=== PATIENT | male | born 1965 | race Caucasian/White ===

== ENCOUNTER 2025-05-23 08:12 | Emergency (ER) | payer BC, MEDICAID, SELFPAY ==
[2025-05-23 08:24] VITALS: BP 169/124; PULSE 115; RESP 18; TEMP 36.8; O2SAT 98; BMI 28.5
--- NOTE | 2025-05-23 08:33 | ED_ITS ---
HPI - Abdominal Pain 2 General: Chief Complaint: Back Pain/Injury Stated Complaint: lt abd pain Time Seen by Provider: 05/23/25 08:30 Source: patient Mode of arrival: ambulatory Limitations: no limitations History of Present Illness: 59-year-old male states he has had left flank pain over the last few days. States pains been sharp in nature and gradually worsening states has had a history of kidney stones and this feels similar he rates his pain an 8 out of 10 currently denies any vomiting denies any dysuria. Associated Symptoms: Denies chills, diarrhea, dysuria, fever(s), nausea and vomiting Related Data Previous Rx's ?Medication ?Instructions ?Recorded hydrocodone 5 mg-acetaminophen 325 1 tab PO Q6H PRN pa in #14 tabs 05/23/25 mg tablet tamsulosin 0.4 mg capsule (Flomax) 0.4 mg PO DAILY #10 caps 05/23/25 Allergies Allergy/AdvReac Type Severity Reaction Status Date / Time No Known Allergies Allergy Verified 05/23/25 08:26 Review of Systems 2 Const: Denies: fever(s), chills, body aches or change in appetite ENMT: Denies: throat pain or dental pain Card: Denies: chest pain Resp: Denies: dyspnea GI: Denies: abdominal pain, nausea, vomiting or diarrhea : Reports: flank pain; Denies: dysuria Musc: Denies: neck pain or back pain Skin/Breast: Denies: rash Neuro: Denies: headache(s) Physical Exam 2 Const: COMMON NORMALS: no acute distress, patient oriented x3 and healthy appearing HENMT: COMMON NORMALS: normocephalic and atraumatic HEAD & SCALP: n ormocephalic and atraumatic Eye: COMMON NORMALS: conjunctivae normal CONJUNCTIVA: Yes conjunctivae normal Neck/C-Spine: COMMON NORMALS: full ROM and supple Chest: COMMONS NORMALS: normal inspection of the chest Resp: COMMON NORMALS: normal respiratory effort, No retractions, No use of accessory muscles and clear to auscultation bilaterally AUSCULTATION: clear to auscultation bilaterally Cardio: COMMON NORMALS: regular rate, regular rhythm and No murmurs present (Cardio) RATE: regular rate RHYTHM: regular rhythm GI: COMMON NORMALS: Normal to inspection, nondistended, normoactive bowel sounds present, Soft to palpation, non-tender and no masses PALPATION: Yes Soft to palpation Extremity: COMMON NORMALS: normal to inspection and full ROM Neuro: COMMON NORMALS: patient oriented x3, moves all extremities and no focal motor deficits Psych: COMMON NORMALS: mental status grossly normal, Normal thought process present and cooperative THOUGHT PROCESS: Normal thought process present Skin: COMMON NORMALS: no rashes or lesions noted and no wounds GENERAL SKIN EXAM: no rashes or lesions noted Course 2 Vital Signs: Vital signs: Vital Signs Temperature 98.2 F 05/23/25 08:24 Pulse Rate 109 H 05/23/25 09:16 Respiratory Rate 18 05/23/25 08:24 Blood Pressure 147/103 05/23/25 09:16 Pulse Oximetry 98 05/23/25 09:16 Oxygen Delivery Me thod Room Air 05/23/25 09:16 MDM - Abdominal Pain Medical Decision Making Patient presents here with some flank pain CT does show an enlarged prostate blood work urine here is normal he has been able to urinate he does have a UTI feels improved here form needs to follow-up with urology along with his PCP for further workup of his prostate return if worsening he understands agrees to plan Medical Records I reviewed the patient's medical records. Lab Data I reviewed the patient's lab results. 05/23/25 08:40 05/23/25 08:40 Labs/Radiology: Radiology Impressions Abdomen/Pelvis CT 05/23/25 08:46 IMPRESSION: 1. No obstructing renal or ureteral calculi. No hydronephrosis in either kidney. 2. Markedly enlarged prostate with evidence of bladder outlet obstruction. Recommend correlation PSA. Prostate measures 3.9 x 4.8 cm AP by transverse 3. Small esophageal hiatal hernia. 4. Severe chronic central canal stenosis L2-3. Laboratory Results WBC 7.55 10^3/uL (3.29-11.43) 05/23/25 08:40 RBC 5.04 10^6/uL (3.85-5.65) 05/23/25 08:40 Hgb 16.00 g/dL (11.27-16.99) 05/23/25 08:40 Hct 47.9 % (37-53) 05/23/25 08:40 MCV 95.0 fl (82-101) 05/23/25 08:40 MCH 31.7 pg (27-33) 05/23/25 08:40 MCHC 33.4 g/dL (30-55) 05/23/25 08:40 RDW 13.3 % (12.1-15.1) 05/23/25 08:40 Plt Count 247 10^3/cmm (157-399) 05/23/25 08:40 MPV 9.9 fL (7.4-10.4) 05/23/25 08:40 Neut % (Auto) 61.0 % 05/23/25 08:40 Lymph % (Auto) 25.4 % 05/23/25 08:40 [place] % (Auto) 10.9 % 05/23/25 08:40 Eos % (Auto) 1.7 % 05/23/25 08:40 Baso % (Auto) 0.5 % 05/23/25 08:40 Neut # (Auto) 4.60 10^3/uL (1.8-7.7) 05/23/25 08:40 Lymph # (Auto) 1.9 10^3/uL (0.8-4.8) 05/23/25 08:40 [place] # (Auto) 0.8 10^3/uL (0.2-0.9) 05/23/25 08:40 Eos # (Auto) 0.1 10^3/uL (0.0-0.8) 05/23/25 08:40 Baso # (Auto) 0.0 10^3/uL (0.0-0.1) 05/23/25 08:40 Nucleated RBC % (auto) 0 % 05/23/25 08:40 Nucleated RBCs # 0.0 /100WBC 05/23/25 08:40 Sodium 140 mmol/L (136-145) 05/23/25 08:40 Potassium 4.2 mmol/L (3.5-5.1) 05/23/25 08:40 Chloride 105 mmol/L (98-107) 05/23/25 08:40 Carbon Dioxide 23 mmol/L (22-29) 05/23/25 08:40 Anion Gap 16.2 (5-19) 05/23/25 08:40 BUN 10 mg/dL (8-23) 05/23/25 08:40 Creatinine 0.7 mg/dL (0.7-1.2) 05/23/25 08:40 GFR Calculation 114.6 mL/min (90-130) 05/23/25 08:40 Glucose 115 mg/dL (65-115) 05/23/25 08:40 Calculated Osmolality 290 mOsm/kg (285-295) 05/23/25 08:40 Calcium 9.0 mg/dL (8.5-10.5) 05/23/25 08:40 Total Bilirubin 0.4 mg/dL (0.15-1.2) 05/23/25 08:40 AST 15 U/L (0-40) 05/23/25 08:40 ALT 11 U/L (0-41) 05/23/25 08:40 Alkaline Phosphatase 65 U/L (40-130) 05/23/25 08:40 Total Protein 6.8 g/dL (6.6-8.7) 05/23/25 08:40 Albumin 4.1 g/dL (3.5-5.2) 05/23/25 08:40 Globulin 2.7 g/dL (1.3-4.6) 05/23/25 08:40 Lipase 29 U/L (13-60) 05/23/25 08:40 Urine Color Yellow (Yellow) 05/23/25 09:15 Urine Appearance Clear (CLEAR) 05/23/25 09:15 Urine pH 5.5 (5-7) 05/23/25 09:15 Ur Specific [place] 1.019 (1.005-1.030) 05/23/25 09:15 Urine Protein Negative (Negative) 05/23/25 09:15 Urine Glucose (UA) Negative (Normal) 05/23/25 09:15 Urine Ketones 1+ (Negative) H 05/23/25 09:15 Urine Blood Negative (Negative) 05/23/25 09:15 Urine Nitrate Negative (Negative) 05/23/25 09:15 Urine Bilirubin Negative (Negative) 05/23/25 09:15 Urine Urobilinogen 1.0 mg/dL (Negative) 05/23/25 09:15 Ur Leukocyte Esterase Negative (Negative) 05/23/25 09:15 Urine RBC 0-2 /hpf (0-2) 05/23/25 09:15 Urine WBC 0-5 /hpf (0-5) 05/23/25 09:15 Ur Squamous Epith Cells 0-5 /hpf (0-5) 05/23/25 09:15 Amorphous Sediment Not Reportable 05/23/25 09:15 Urine Bacteria None seen /hpf (NONE) 05/23/25 09:15 Hyaline Casts 0.40 /lpf 05/23/25 09:15 All radiology interpretation(s) finalized by discharge Discharge Plan Discharge Patient Disposition: Home Clinical Impression: Enlarged prostate, Flank pain Condition: Stable Prescriptions: New hydrocodone-acetaminophen 5-325 mg tablet 1 tab PO Q6H PRN (Reason: pain) Qty: 14 0RF tamsulosin [Flomax] 0.4 mg capsule 0.4 mg PO DAILY Qty: 10 0RF Discharge Orders: Discharge ED (Routine); Ordered 05/23/25 Ordered By: Tera Paulino Discharge Diet: Advance as tolerated Discharge Activity: Resume usual activity Patient Instructions: Enlarged Prostate (BPH) (ED), Opioid Safety Print Language: Malay Coding Level of Care Code ED Bilingual Speech Therapist for Leigha Reeves
[2025-05-23] MEDS: ondansetron 2 mg/ML SDV 2 mL 4 MG IVP (08:45)
[2025-05-23] MEDS: morphine 4 mg/mL SDV 1 mL IVP (08:45)
--- NOTE | 2025-05-23 08:46 | CT_ITS ---
WS: [id number] CT ABDOMEN PELVIS TECHNIQUE: Noncontrast CT of the abdomen and pelvis with coronal and sagittal reformatted images. CLINICAL INFORMATION: flank pain COMPARISON: 2016 DLP: 813.[address] scans at [facility] use at least one of these dose optimization techniques: automated exposure control; mA and/or kV adjustment per patient size (includes targeted exams where dose is matched to clinical indication); or iterative reconstruction. FINDINGS: No obstructing renal or ureteral calculi. Small LEFT renal cyst. Tiny nonobstructing LEFT calyceal tip calculus. Markedly enlarged prostate with bladder outlet obstruction. Small RIGHT hepatic cyst. Small esophageal hiatal hernia. Normal noncontrast pancreas and spleen. Adrenal glands are normal. Splenic artery calcification. Normal caliber abdominal aorta. Aortic calcification. Tiny fat-containing umbilical hernia. Small fat-containing LEFT inguinal hernia. No evidence of high-grade small or large bowel obstruction. Normal appendix. Advanced spondylitic changes lumbar spine. Chronic severe central canal stenosis L2-3 due to disc osteophyte complex. CT/CT kidney stone [id number] IMPRESSION: 1. No obstructing renal or ureteral calculi. No hydronephrosis in either kidne y. 2. Markedly enlarged prostate with evidence of bladder outlet obstruction. Rec ommend correlation PSA. Prostate measures 3.9 x 4.8 cm AP by transverse 3. Small esophageal hiatal hernia. 4. Severe chronic central canal stenosis L2-3.
[2025-05-23 08:55] LABS: Hematocrit 47.9 % (37-53); Hemoglobin 16.00 g/dL (11.27-16.99); Mean Corpuscular HGB Conc 33.4 g/dL (30-55); Mean Corpuscular Hemoglobin 31.7 pg (27-33); Mean Corpuscular Volume 95.0 fl (82-101); Nucleated Red Blood Cells % 0 %; Platelet Count 247 10^3/cmm (157-399); Red Blood Count 5.04 10^6/uL (3.85-5.65); White Blood Count 7.55 10^3/uL (3.29-11.43)
[2025-05-23 09:06] LABS: Alanine Aminotransferase 11 U/L (0-41); Albumin Level 4.1 g/dL (3.5-5.2); Alkaline Phosphatase 65 U/L (40-130); Anion Gap 16.2 (5-19); Aspartate Amino Transferase 15 U/L (0-40); Blood Urea Nitrogen 10 mg/dL (8-23); Calcium 9.0 mg/dL (8.5-10.5); Carbon Dioxide 23 mmol/L (22-29); Chloride 105 mmol/L (98-107); Creatinine Clr Calc Pharmacy 129.1186; Globulin 2.7 g/dL (1.3-4.6); Glucose 115 mg/dL (65-115); Lipase 29 U/L (13-60); Osmolality Calculated 290 mOsm/kg (285-295); Potassium 4.2 mmol/L (3.5-5.1); Sodium 140 mmol/L (136-145); Total Protein 6.8 g/dL (6.6-8.7)
[2025-05-23 09:16] VITALS: BP 147/103; PULSE 109; O2SAT 98
[2025-05-23 09:25] LABS: Glucose Urine UA Negative (Normal); Nitrate Urine Negative (Negative); Specific Gravity, Urine 1.019 (1.005-1.030)
[2025-05-23 09:27] LABS: Add Urine Microscopic? YES
--- NOTE | 2025-05-24 07:19 | DCPLANNER ---
faxed discharge patient to [facility] u[facility]
== END 2025-05-23 09:51 | disposition home or self-care (01) ==
PROVIDERS: Emergency Provider Emergency Medicine
DX: N40.0 Benign prostatic hyperplasia without lower urinary tract symptoms (principal); R10.9 Unspecified abdominal pain
CPT/HCPCS: 74176; 80053; 81001; 83690; 85025; 96374; 96375; 99285; J1885; J2270; J2405; J7030